=== PATIENT | female | born 1940 | race African-American/Black ===

== ENCOUNTER → 2017-05-11 | Outpatient (CLI) | payer MEDICARE ==
[~2017-05-11] MED LIST: ARIMIDEX1 MG PO; CADUET 5 MG/101 TAB PO; COUMADIN PO; D3 VITAMIN PO; DYAZIDE 37.5/251 CAP PO; FLEXERIL10 M1 PO; FOSAMAX PO; KCL PO; POSTURE600 MG PO; TYLENOL #3 PO
[2017-05-11 08:58] LABS: HEMATOCRIT 44.3 % (35.0-45.0); HEMOGLOBIN 14.8 gm/dL (12.0-16.0); MEAN CELL VOLUME 91.3 FL (83-96); MEAN CORPUSCULAR HEMOGLOBIN 30.6 PG (28-34); MEAN CORPUSCULAR HGB CONC 33.5 g/dL (30-36); MEAN PLATELET VOLUME 7.8 FL (6.5-11.5); RED BLOOD COUNT 4.85 X10e (3.90-5.30); WHITE BLOOD COUNT 5.7 X10e3 (4.0-10.5)
[2017-05-11 09:22] LABS: INR 3.2; PROTHROMBIN TIME (PATIENT) 34.7 SECONDS (10.0-11.7)
[2017-05-11 09:52] LABS: ALBUMIN SERUM 3.6 g/dL (3.5-5.0); BILIRUBIN, DIRECT 0.1 mg/dL (0.0-0.2); BILIRUBIN,INDIRECT 0.5 mg/dL (0.0-0.9); BILIRUBIN,TOTAL 0.6 mg/dL (0.2-2.0); BUN/CREATININE RATIO 17.27; CALCIUM SERUM 9.1 mg/dL (8.4-10.2); CREATININE SERUM 1.1 mg/dL (0.6-1.4); GLOM FILT RATE Estimated 56.9 mL/min (>60); POTASSIUM 3.2 mmol/L (3.5-5.1); PROTEIN TOTAL SERUM 6.3 g/dL (6.0-8.3)
[2017-05-14 05:18] LABS: CARDIOLIPIN IGG (LUPUS) <14 GPL (<=14); CARDIOLIPIN IGM (LUPUS) <12 MPL (<=12); DRVVT CONFIRM Negative (Negative); DRVVT MIX INTERP (LUPUS) Not Indicated (()); HEXAGONAL PHASE CONF (LUPUS) Negative (Negative); IMM PT MIX 12.7 sec (<=11.5); IMM PTT LA MIX CORRECTED (()); INCUB PTT LA MIX CORRECTED (()); INR LUPUS 3.7 (()); MICROALB UR (PNL) 42.7 mg/dL (***); PROTROMBIN TIME LUPUS 36.5 sec (9.0-11.5); PT (LA MIX STUDY) 36.5 sec (<=11.5); PTT MIX INTERP Has been added (()); PTT-LA 48 sec (<=40); PTT-LA SCREEN (LUPUS) 48 sec (<=40); RATIO (PNL) 290 (<30.0); THROMBIN TIME LUPUS 20 sec (13-19); dRVVT SCREEN (LUPUS) 68 sec (<=45)
[2017-05-15 23:34] LABS: ANA SCREEN Negative (Negative)
== END | disposition home or self-care (01) ==
LOC: CLAB 08:00
PROVIDERS: Internal Medicine Pulmonary Disease
DX: I10 Essential (primary) hypertension (principal); E55.9 Vitamin D deficiency, unspecified; E78.4 Other hyperlipidemia; I26.99 Other pulmonary embolism without acute cor pulmonale; Z79.01 Long term (current) use of anticoagulants
CPT/HCPCS: 36415; 80048; 80061; 80076; 82043; 82306; 82570; 84443; 85027; 85597; 85598; 85610; 85613; 85670; 85730; 86038; 86039; 86147; 86430